=== PATIENT | female | born 1985 | race Caucasian/White ===

== ENCOUNTER 2022-08-23 13:26 | Emergency (ER) | payer OTHER ==
[2022-08-23 13:33] VITALS: BP 112/74; PULSE 96; RESP 18; TEMP 98.8; BMI 40.1
[2022-08-23] MEDS ORDERED: MAG HYDROX/AL HYDROX/SIMETH 30 ML UNIT-DOSE CUP PO ONE (14:04)
[2022-08-23] MEDS ORDERED: SODIUM CHLORIDE 1,000 ML IV STA (14:04)
[2022-08-23] MEDS ORDERED: FAMOTIDINE 20 MG/50 ML IVPB 20 MG/50 ML MG IVPB ONE ×2 (14:04→14:17)
[2022-08-23] MEDS ORDERED: ONDANSETRON 4 MG/2 ML VIAL IVPUSH ONE (14:05)
[2022-08-23] MEDS ORDERED: MAG HYDROX/AL HYDROX/SIMETH 30 ML UNIT-DOSE CUP ONE (14:17)
[2022-08-23] MEDS ORDERED: ONDANSETRON 4 MG/2 ML VIAL ONE (14:17)
[2022-08-23 14:49] LABS: EOS % 0.8 % (0-4.5); HEMATOCRIT 36.1 % (32.4-45.2); HEMOGLOBIN 12.3 GM/dL (10.7-15.3); LYMPH % 28.2 % (8-40); MCH 28.9 pg (25.7-33.7); MCHC 33.9 g/dl (32.0-36.0); MEAN CELL VOLUME 85.2 fl (80-96); MEAN PLT VOLUME 8.4 fl (7.5-11.1); MONO % 6.3 % (3.8-10.2); NEUT % 63.7 % (42.8-82.8); PLATELET COUNT 285 10^3/uL (134-434); RBC 4.24 M/mm3 (3.60-5.2); RDW 13.1 % (11.6-15.6); WHITE BLOOD COUNT 7.4 K/mm3 (4.0-10.0)
[2022-08-23 14:50] LABS: PH,URINE 5.5 (5.0-8.0); URINE APPEARANCE CLEAR; URINE BILIRUBIN NEGATIVE (NEGATIVE); URINE COLOR YELLOW; URINE GLUCOSE (UA) NEGATIVE (NEGATIVE); URINE KETONE NEGATIVE (NEGATIVE); URINE LEUK ESTERASE NEGATIVE (NEGATIVE); URINE NITRITE NEGATIVE (NEGATIVE); URINE PROTEIN NEGATIVE (NEGATIVE); URINE UROBILINOGEN 0.2 mg/dL (0.2-1.0)
[2022-08-23 14:53] LABS: HCG,QUALITATIVE URINE Negative
[2022-08-23 14:55] LABS: INR 1.19 (0.83-1.09); PROTHROMBIN TIME (PATIENT) 13.8 SEC (9.7-13.0)
[2022-08-23 14:58] LABS: ACTIVATED PTT 30.2 SECONDS (25.2-36.5)
[2022-08-23 15:11] LABS: ALBUMIN 4.1 g/dl (3.4-5.0)
[2022-08-23 15:13] LABS: CREATININE 0.8 mg/dL (0.55-1.3)
[2022-08-23 15:14] LABS: TOT PROT 7.7 g/dl (6.4-8.2)
[2022-08-23 15:15] LABS: BILIRUBIN,TOTAL 0.3 mg/dL (0.2-1)
[2022-08-23 15:20] LABS: BLOOD UREA NITROGEN 17.2 mg/dL (7-18)
== END 2022-08-23 17:00 | disposition home or self-care (01) ==
LOC: JER 13:26
PROC: 3E033GC Introduction of Other Therapeutic Substance into Peripheral Vein, Percutaneous Approach (ICD-10-PCS; principal; 2022-08-23)
PROC: 3E033GC Introduction of Other Therapeutic Substance into Peripheral Vein, Percutaneous Approach (ICD-10-PCS; 2022-08-23)
PROC: 3E0337Z Introduction of Electrolytic and Water Balance Substance into Peripheral Vein, Percutaneous Approach (ICD-10-PCS; 2022-08-23)
DX: K80.20 Calculus of gallbladder without cholecystitis without obstruction (principal)
CPT/HCPCS: 36415; 76705-TC; 80053; 81003; 82150; 83690; 84703; 85025; 85610; 85730; 87086; 99284-25